=== PATIENT | male | born 1935 | race Caucasian/White ===

== ENCOUNTER 2021-05-24 19:54 | Emergency (ER) | payer MEDICARE, OTHER ==
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
[2021-05-25] MEDS ORDERED: Acetaminophen/HYDROcodone 325-5 MG Tab PO ONE (04:57)
== END 2021-05-25 11:05 | disposition home or self-care (01) ==
LOC: FB.ED 19:54
DX: R07.81 Pleurodynia (principal)
CPT/HCPCS: 36415; 71101-LT; 80053; 85025; 99284-25; A9270-GY